=== PATIENT | female | born 1940 | race Caucasian/White ===

== ENCOUNTER 2018-03-07 17:45 | Emergency (ER) | payer OTHER, BC ==
--- NOTE | 2018-03-07 19:21 | RAD REPORT ---
EXAM DESCRIPTION: Jr Phelan (2 Views)03/07/2018 6:49 pm CLINICAL HISTORY: sob COMPARISON: April 2016 FINDINGS: The lungs appear clear of acute infiltrate. The heart is normal size IMPRESSION: No acute abnormalities displayed
[2018-03-07] MEDS ORDERED: IPRATROPIUM BROM 0.5MG/2.5ML ONE (20:13)
[2018-03-07] MEDS ORDERED: ALBUTEROL 2.5 MG/3 ML NEB SOL ONE (20:13)
[2018-03-07] MEDS ORDERED: predniSONE 20 MG TAB ONE (20:13)
[2018-03-07 20:38] LABS: Absolute Lymphocytes (CBC) 3.9 K/uL (0.7-4.9); Absolute Monocytes 0.6 K/uL (0.1-1.3); Basophils % 1.2 % (0-1.3); Eosinophils % 1.1 % (0-4.4); Hematocrit 45.7 % (36.0-45.0); MCH 32.2 pg (27.0-35.0); MCV 92.8 fL (80-100); MPV 7.7 fL (7.6-11.3); Monocytes % 5.7 % (3.3-12.3); RBC Red Blood Cell Count 4.92 M/uL (3.86-4.86)
[2018-03-07 20:56] LABS: BUN Blood Urea Nitrogen 15 mg/dL (7-18); Bicarbonate 27 mmol/L (21-32); Glucose Level 115 mg/dL (74-106); NT PRO-BNP 64 pg/mL (<450); Potassium 3.9 mmol/L (3.5-5.1); Sodium Level 138 mmol/L (136-145); Troponin (Emerg Dept Use Only) < 0.02 ng/mL (0.0-0.045)
--- NOTE | 2018-03-07 21:01 | ER ---
Nurse's Notes [facility] Name: Nanci Thomas Age: 77 yrs Sex: Female : 1940 Arrival Date: 03/07/2018 Time: 17:49 Bed 23 Private MD: Barry Sandy E Diagnosis: Acute bronchitis Presentation: 03/07 18:07 Presenting complaint: Patient states: SOB for 4 days. Unable to see dental financial coordinator aj today. Transition of care: patient was not received from another setting of care. Onset of symptoms was March 03, 2018. Risk Assessment: Do you want to hurt yourself or someone else? Patient reports no desire to harm self or others. Initial Sepsis Screen: Does the patient meet any 2 criteria? No. Patient's initial sepsis screen is negative. Does the patient have a suspected source of infection? No. Patient's initial sepsis screen is negative. Care prior to arrival: None. 18:07 Method Of Arrival: Ambulatory aj 18:07 Acuity: JOEL 3 aj Triage Assessment: 18:10 General: Appears in no apparent distress. comfortable, Behavior is calm, cooperative, aj appropriate for age. Pain: Denies pain. Neuro: Level of Consciousness is awake, alert, obeys commands, Oriented to person, place, time, situation, Appropriate for age. Respiratory: Reports shortness of breath Airway is patent Respiratory effort is even, unlabored, Respiratory pattern is regular, symmetrical, Onset: The symptoms/episode began/occurred gradually, the patient has mild shortness of breath. Derm: Skin is intact, is healthy with good turgor, Skin is pink, warm \T\ dry. normal. Historical: - Allergies: 18:10 adhesive tape-silicones; aj 18:10 Cefaclor; aj 18:10 Codeine; aj 18:10 Hydrocodone-Acetaminophen; aj 18:10 Latex, Natural Rubber; aj 18:10 Levofloxacin; aj 18:10 Sulfa (Sulfonamide Antibiotics); aj - Home Meds: 20:18 spironolactone 50 mg Oral tab 1 tab once daily [Active]; Cartia XT 180 mg Oral cp24 2 ed1 caps once daily [Active]; Spiriva with HandiHaler 18 mcg inhalation CpDv 1 cap once daily [Active]; glimepiride 2 mg Oral tab 1 tab once daily [Active]; anastrozole 1 mg oral tab 1 tab once daily [Active]; Calcarb 600 With Vitamin D 600 mg(1,500mg) -400 unit Oral tab [Active]; B12 sublingual sublingual daily [Active]; Zonalon 5 % topical crea PRN [Active]; Melatonin Oral nightly [Active]; - PMHx: 18:10 breast cancer; COPD; Hypertension; aj - PSHx: 18:10 left breast cancer; Mastectomy, Left; aj - Immunization history:: Adult Immunizations up to date. - Social history:: Smoking status: Patient/guardian denies using tobacco. - Ebola Screening: : Patient negative for fever greater than or equal to 101.5 degrees Fahrenheit, and additional compatible Ebola Virus Disease symptoms Patient denies exposure to infectious person Patient denies travel to an Ebola-affected area in the 21 days before illness onset No symptoms or risks identified at this time. Screenin:30 Abuse screen: Denies threats or abuse. Denies injuries from another. Nutritional ed1 screening: No deficits noted. Tuberculosis screening: No symptoms or risk factors identified. Fall Risk None identified. Assessment: 19:30 General: Appears in no apparent distress. Behavior is calm, cooperative. Pain: Denies ed1 pain. Neuro: Level of Consciousness is awake, alert, obeys commands, Oriented to person, place, time, situation. Cardiovascular: Denies chest pain, Heart tones S1 S2 present Rhythm is regular. Respiratory: Reports shortness of breath at rest Airway is patent Respiratory effort is even, unlabored, Respiratory pattern is regular, symmetrical, Breath sounds are coarse bilaterally. GI: No signs and/or symptoms were reported involving the gastrointestinal system. : No signs and/or symptoms were reported regarding the genitourinary system. EENT: No signs and/or symptoms were reported regarding the EENT system. Derm: Skin is intact, is healthy with good turgor, Skin is dry, Skin is normal, Skin temperature is warm. Musculoskeletal: Circulation, motion, and sensation intact. 20:58 Reassessment: Patient appears in no apparent distress at this time. Patient and/or ed1 family updated on plan of care and expected duration. Pain level reassessed. Patient is alert, oriented x 3, equal unlabored respirations, skin warm/dry/pink. Patient denies pain at this time. Patient states feeling better. Patient states symptoms have improved. Vital Signs: 18:10 BP 146 / 73; Pulse 95; Resp 21; Temp 98.6; Pulse Ox 97% on R/A; Weight 83.91 kg; Height aj 5 ft. 4 in. (162.56 cm); 19:30 BP 174 / 76; Pulse 94; Resp 19; Pulse Ox 98% on R/A; Pain 0/10; ed1 20:58 BP 155 / 73; Pulse 93; Resp 15; Pulse Ox 96% on R/A; Pain 0/10; ed1 18:10 Body Mass Index 31.75 (83.91 kg, 162.56 cm) ED Course: 17:49 Patient arrived in ED. mr 17:50 Barry Sandy MD is Private Physician. mr 18:09 Triage completed. aj 18:10 Arm band placed on right wrist. Patient placed in waiting room, Patient notified of wait time. X-ray ordered. 18:48 Chest Pa And Lat (2 Views) XRAY In Process Unspecified. EDMS 19:25 Yessi Ward LVN is Primary Nurse. ed1 19:30 Resting quietly. Awaiting ED provider evaluation. ed1 19:30 Patient has correct armband on for positive identification. Placed in gown. Bed in low ed1 position. Call light in reach. Side rails up X 1. Adult w/ patient. Pulse ox on. NIBP on. Door closed. Warm blanket given. Pillow given. Head of bed elevated. 19:32 Taj Freed MD is Attending Physician. 21:10 No provider procedures requiring assistance completed. IV discontinued, intact, ed1 bleeding controlled, No redness/swelling at site. Pressure dressing applied. Administered Medications: 20:10 Drug: Albuterol 2.5 mg Route: Inhalation; ed1 21:12 Follow up: Response: Marked relief of symptoms ed1 20:10 Drug: AtroVENT Aerosol 0.5 mg Route: Inhalation; ed1 21:11 Follow up: Response: Marked relief of symptoms ed1 20:11 Drug: predniSONE 20 mg Route: PO; ed1 21:11 Follow up: Response: No adverse reaction ed1 Outcome: 21:00 Discharge ordered by . gs 21:10 Discharged to home ambulatory. ed1 21:10 Condition: good 21:10 Discharge instructions given to patient, Instructed on discharge instructions, follow up and referral plans. medication usage, Demonstrated understanding of instructions, follow-up care, medications, Prescriptions given X 2. 21:12 Patient left the ED. ed1 Signatures: Dispatcher [employer] EDMS Penny Bellamy RN RN aj Rivera, Meryl mr Ward, Yessi, INSTALLER METAL FLOORING INSTALLER METAL FLOORING ed1 Taj Freed MD MD gs Corrections: (The following items were deleted from the chart) 20:18 18:10 Home Meds: cetirizine Oral; ed1 20:18 18:10 Home Meds: cholecalciferol (vitamin D3) Oral; ed1 20:18 18:10 Home Meds: Diltiazem Oral; ed1 20:18 18:10 Home Meds: Doxepin Oral; ed1 20:18 18:10 Home Meds: Famotidine Oral; ed1 20:18 18:10 Home Meds: montelukast Oral; ed1 20:18 18:10 Home Meds: Spironolacton-Hydrochlorothiaz Oral; ed1 20:18 18:10 Home Meds: tiotropium bromide inhalation; ed1 20:18 18:10 Home Meds: Azithromycin Oral [Inactive]; ed1
--- NOTE | 2018-03-07 21:01 | EDPHYS ---
Physician Documentation [facility] Name: Nanci Thomas Age: 77 yrs Sex: Female : 1940 Arrival Date: 03/07/2018 Time: 17:49 Bed 23 Private MD: Barry Sandy E ED Physician Taj Freed HPI: 03/07 20:58 This 77 yrs old Female presents to ER via Ambulatory with complaints of gs Breathing Difficulty. 20:58 The patient has shortness of breath at rest. Onset: The symptoms/episode began/occurred gs 1 week(s) ago, and became persistent. Duration: The symptoms are intermittent. The patient's shortness of breath is aggravated by coughing. Associated signs and symptoms: Pertinent positives: non-productive cough, Pertinent negatives: chest pain, fever, hemoptysis. Severity of symptoms: At their worst the symptoms were moderate in the emergency department the symptoms have improved moderately. The patient has experienced similar episodes in the past, a few times. Historical: - Allergies: 18:10 adhesive tape-silicones; aj 18:10 Cefaclor; aj 18:10 Codeine; aj 18:10 Hydrocodone-Acetaminophen; aj 18:10 Latex, Natural Rubber; aj 18:10 Levofloxacin; aj 18:10 Sulfa (Sulfonamide Antibiotics); aj - Home Meds: 20:18 spironolactone 50 mg Oral tab 1 tab once daily [Active]; Cartia XT 180 mg Oral cp24 2 ed1 caps once daily [Active]; Spiriva with HandiHaler 18 mcg inhalation CpDv 1 cap once daily [Active]; glimepiride 2 mg Oral tab 1 tab once daily [Active]; anastrozole 1 mg oral tab 1 tab once daily [Active]; Calcarb 600 With Vitamin D 600 mg(1,500mg) -400 unit Oral tab [Active]; B12 sublingual sublingual daily [Active]; Zonalon 5 % topical crea PRN [Active]; Melatonin Oral nightly [Active]; - PMHx: 18:10 breast cancer; COPD; Hypertension; aj - PSHx: 18:10 left breast cancer; Mastectomy, Left; aj - Immunization history:: Adult Immunizations up to date. - Social history:: Smoking status: Patient/guardian denies using tobacco. - Ebola Screening: : Patient negative for fever greater than or equal to 101.5 degrees Fahrenheit, and additional compatible Ebola Virus Disease symptoms Patient denies exposure to infectious person Patient denies travel to an Ebola-affected area in the 21 days before illness onset No symptoms or risks identified at this time. ROS: 20:58 All other systems are negative. gs Exam: 20:58 Head/Face: Normocephalic, atraumatic. Eyes: Pupils equal round and reactive to light, gs extra-ocular motions intact. Lids and lashes normal. Conjunctiva and sclera are non-icteric and not injected. Cornea within normal limits. Periorbital areas with no swelling, redness, or edema. ENT: Nares patent. No nasal discharge, no septal abnormalities noted. Tympanic membranes are normal and external auditory canals are clear. Oropharynx with no redness, swelling, or masses, exudates, or evidence of obstruction, uvula midline. Mucous membranes moist. Neck: Trachea midline, no thyromegaly or masses palpated, and no cervical lymphadenopathy. Supple, full range of motion without nuchal rigidity, or vertebral point tenderness. No Meningismus. Chest/axilla: Normal chest wall appearance and motion. Nontender with no deformity. No lesions are appreciated. Cardiovascular: Regular rate and rhythm with a normal S1 and S2. No gallops, murmurs, or rubs. Normal PMI, no JVD. No pulse deficits. Respiratory: Lungs have equal breath sounds bilaterally, clear to auscultation and percussion. No rales, rhonchi or wheezes noted. No increased work of breathing, no retractions or nasal flaring. Abdomen/GI: Soft, non-tender, with normal bowel sounds. No distension or tympany. No guarding or rebound. No evidence of tenderness throughout. Back: No spinal tenderness. No costovertebral tenderness. Full range of motion. Skin: Warm, dry with normal turgor. Normal color with no rashes, no lesions, and no evidence of cellulitis. MS/ Extremity: Pulses equal, no cyanosis. Neurovascular intact. Full, normal range of motion. Neuro: Awake and alert, GCS 15, oriented to person, place, time, and situation. Cranial nerves II-XII grossly intact. Motor strength 5/5 in all extremities. Sensory grossly intact. Cerebellar exam normal. Normal gait. 20:58 Constitutional: The patient appears alert, awake. 20:58 ECG was reviewed by the Attending Physician. Vital Signs: 18:10 BP 146 / 73; Pulse 95; Resp 21; Temp 98.6; Pulse Ox 97% on R/A; Weight 83.91 kg; Height aj 5 ft. 4 in. (162.56 cm); 19:30 BP 174 / 76; Pulse 94; Resp 19; Pulse Ox 98% on R/A; Pain 0/10; ed1 20:58 BP 155 / 73; Pulse 93; Resp 15; Pulse Ox 96% on R/A; Pain 0/10; ed1 18:10 Body Mass Index 31.75 (83.91 kg, 162.56 cm) aj MDM: 20:01 Patient medically screened. 20:58 Differential diagnosis: asthma, CHF exacerbation, Chronic Obstructive Pulmonary Disease gs Myocardial Infarction pneumonia. Data reviewed: vital signs, nurses notes, lab test result(s), EKG, radiologic studies. Counseling: I had a detailed discussion with the patient and/or guardian regarding: the historical points, exam findings, and any diagnostic results supporting the discharge/admit diagnosis, lab results, radiology results, the need for outpatient follow up. Response to treatment: the patient's symptoms have markedly improved after treatment, and as a result, I will discharge patient. 03/07 20:03 Order name: Basic Metabolic Panel; Complete Time: 20:57 03/07 20:03 Order name: CBC with Diff; Complete Time: 20:57 03/07 18:12 Order name: Chest Pa And Lat (2 Views) XRAY; Complete Time: 19:32 03/07 20:03 Order name: NT PRO-BNP; Complete Time: 20:57 03/07 20:03 Order name: Troponin (emerg Dept Use Only); Complete Time: 20:57 03/07 20:03 Order name: EKG; Complete Time: 20:04 03/07 20:03 Order name: Cardiac monitoring; Complete Time: 20:19 03/07 20:03 Order name: EKG - Nurse/Tech; Complete Time: 20:19 03/07 20:03 Order name: IV Saline Lock; Complete Time: 20:19 03/07 20:03 Order name: Labs collected and sent; Complete Time: 20:19 03/07 20:03 Order name: O2 Per Protocol; Complete Time: 20:19 gs 03/07 20:03 Order name: O2 Sat Monitoring; Complete Time: 20:19 gs EC:58 Rate is 87 beats/min. Rhythm is regular. MI interval is normal. QRS interval is normal. gs T waves are Normal. No ST changes noted. Clinical impression: Normal ECG. Interpreted by me. Administered Medications: 20:10 Drug: Albuterol 2.5 mg Route: Inhalation; ed1 21:12 Follow up: Response: Marked relief of symptoms ed1 20:10 Drug: AtroVENT Aerosol 0.5 mg Route: Inhalation; ed1 21:11 Follow up: Response: Marked relief of symptoms ed1 20:11 Drug: predniSONE 20 mg Route: PO; ed1 21:11 Follow up: Response: No adverse reaction ed1 Disposition: 03/07/18 21:00 Discharged to Home. Impression: Acute bronchitis. - Condition is Stable. - Discharge Instructions: Acute Bronchitis, Adult. - Prescriptions for Prednisone 20 mg Oral Tablet - take 1 tablet by ORAL route once daily for 5 days; 5 tablet. Albuterol Sulfate 90 mcg/actuation - inhale 1-2 puff by INHALATION route every 4-6 hours; 1 Inhaler. - Medication Reconciliation Form, Thank You Letter, Antibiotic Education, Prescription Opioid Use form. - Follow up: Private Physician; When: 2 - 3 days; Reason: Re-evaluation by your physician. Signatures: Dispatcher [employer] EDMS Penny Bellamy RN RN aj Riggs, Erika, SUPERVISOR METER REPAIR SHOP SUPERVISOR METER REPAIR SHOP ed1 Taj Freed MD MD Corrections: (The following items were deleted from the chart) 20:18 18:10 Home Meds: cetirizine Oral; ed1 20:18 18:10 Home Meds: cholecalciferol (vitamin D3) Oral; ed1 20:18 18:10 Home Meds: Diltiazem Oral; ed1 20:18 18:10 Home Meds: Doxepin Oral; ed1 20:18 18:10 Home Meds: Famotidine Oral; ed1 20:18 18:10 Home Meds: montelukast Oral; ed1 20:18 18:10 Home Meds: Spironolacton-Hydrochlorothiaz Oral; ed1 20:18 18:10 Home Meds: tiotropium bromide inhalation; aj ed1 20:18 18:10 Home Meds: Azithromycin Oral [Inactive]; aj ed1 21:12 21:00 03/07/2018 21:00 Discharged to Home. Impression: Acute bronchitis. Condition is ed1 Stable. Forms are Medication Reconciliation Form, Thank You Letter, Antibiotic Education, Prescription Opioid Use. Follow up: Private Physician; When: 2 - 3 days; Reason: Re-evaluation by your physician. gs
--- NOTE | 2018-03-08 07:19 | EKG ---
Test Date: 2018-03-07 Test Time: 20:12:12 Business Mgr: LIANET MEASUREMENT RESULTS: Intervals: Rate: 87 RI: 178 QRSD: 74 QT: 360 QTc: 433 [place]: P: 74 RI: 178 QRS: 22 T: 70 INTERPRETIVE STATEMENTS: Normal sinus rhythm Normal ECG Compared to ECG 05/04/2016 21:09:07 No significant changes Electronically Signed On 03-08-18 07:18:18 EMBOSSING MACHINE OPERATOR by Cristofer Cheung
== END 2018-03-07 21:12 | disposition home or self-care (01) ==
LOC: ER 17:45
DX: J20.9 Acute bronchitis, unspecified (principal); I10 Essential (primary) hypertension; Z85.3 Personal history of malignant neoplasm of breast; Z88.2 Allergy status to sulfonamides; Z88.5 Allergy status to narcotic agent; Z88.8 Allergy status to other drugs, medicaments and biological substances; Z90.12 Acquired absence of left breast and nipple; Z91.040 Latex allergy status; Z91.048 Other nonmedicinal substance allergy status
CPT/HCPCS: 36415; 71046; 80048; 83880; 84484; 85025; 93005; 99284; J7512

== ENCOUNTER 2019-01-26 03:43 | Emergency (ER) | payer OTHER, BC ==
[2019-01-26] MEDS ORDERED: METHYLPREDNISOLONE 125 MG INJ ONE (04:09)
[2019-01-26] MEDS ORDERED: FAMOTIDINE 20 MG/2 ML VIAL IV ONE (04:10)
[2019-01-26] MEDS ORDERED: NA CHLORIDE 0.9% 1,000 ML ONE (04:10)
[2019-01-26] MEDS ORDERED: DIPHENHYDRAMINE 50 MG/ML VIAL ONE (04:10)
[2019-01-26] MEDS ORDERED: predniSONE 20 MG TAB ONE (04:11)
[2019-01-26 04:18] LABS: Absolute Lymphocytes (CBC) 3.7 K/uL (0.7-4.9); Basophils % 0.8 % (0-1.3); Hematocrit 43.1 % (36.0-45.0); MPV 7.6 fL (7.6-11.3)
[2019-01-26] MEDS ORDERED: dexAMETHasone 10 MG/ML VIAL ONE (04:25)
[2019-01-26 04:33] LABS: Albumin 3.9 g/dL (3.4-5.0); Bilirubin Total 0.3 mg/dL (0.2-1.0); Potassium 3.9 mmol/L (3.5-5.1); Protein, Total 7.5 g/dL (6.4-8.2)
--- NOTE | 2019-01-26 04:38 | ER ---
Nurse's Notes [facility] Name: Nanci Thomas Age: 78 yrs Sex: Female : 1940 Arrival Date: 01/26/2019 Time: 03:46 Bed 4 Private MD: Diagnosis: Angioneurotic edema Presentation: 01/26 04:03 Presenting complaint: Patient states: progressive swelling in right side of tongue tl2 since last night, denies difficulty swallowing or breathing. Reports history of chronic urticaria and has had tongue swelling in the past. Pt took 3 doses of benadryl since 0000, last dose at 0300. Transition of care: patient was not received from another setting of care. Onset of symptoms was January 25, 2019 at 22:00. Risk Assessment: Do you want to hurt yourself or someone else? Patient reports no desire to harm self or others. Initial Sepsis Screen: Does the patient meet any 2 criteria? No. Patient's initial sepsis screen is negative. Does the patient have a suspected source of infection? No. Patient's initial sepsis screen is negative. Care prior to arrival: Medication(s) given: benadryl. 04:03 Method Of Arrival: Ambulatory tl2 04:03 Acuity: JOEL 3 tl2 Triage Assessment: 04:09 General: Appears in no apparent distress. comfortable, Behavior is calm, cooperative, tl2 appropriate for age. Pain: Denies pain. Neuro: Level of Consciousness is awake, alert, obeys commands, Oriented to person, place, time, situation. Cardiovascular: Denies chest pain. Respiratory: Airway is patent Respiratory effort is even, unlabored, Respiratory pattern is regular, symmetrical. Derm: Skin is pink, warm \T\ dry. Musculoskeletal: Swelling present in right side of tongue. Historical: - Allergies: 04:07 adhesive tape-silicones; tl2 04:07 Cefaclor; tl2 04:07 Codeine; tl2 04:07 Hydrocodone-Acetaminophen; tl2 04:07 Latex, Natural Rubber; tl2 04:07 Levofloxacin; tl2 04:07 Sulfa (Sulfonamide Antibiotics); tl2 - Home Meds: 04:07 anastrozole 1 mg Oral tab 1 tab once daily [Active]; B12 sublingual daily [Active]; tl2 glimepiride 2 mg Oral tab 1 tab once daily [Active]; Calcarb 600 With Vitamin D 600 mg(1,500mg) -400 unit Oral tab [Active]; spironolactone 50 mg Oral tab 1 tab once daily [Active]; Zonalon 5 % Topical crea PRN [Active]; Diltiazem Oral [Active]; - PMHx: 04:07 breast cancer; COPD; Hypertension; tl2 - PSHx: 04:07 Mastectomy, Left; tl2 - Immunization history:: Adult Immunizations up to date. - Social history:: Smoking status: Patient/guardian denies using tobacco. - Family history:: not pertinent. - Ebola Screening: : No symptoms or risks identified at this time. Screenin:11 Abuse screen: Denies threats or abuse. Nutritional screening: No deficits noted. tl2 Tuberculosis screening: No symptoms or risk factors identified. Fall Risk None identified. Assessment: 04:10 Reassessment: see triage assessment. tl2 05:25 Reassessment: Patient appears in no apparent distress at this time. Patient and/or tl2 family updated on plan of care and expected duration. Pain level reassessed. Patient is alert, oriented x 3, equal unlabored respirations, skin warm/dry/pink. Patient states feeling better. Vital Signs: 04:09 BP 147 / 108; Pulse 103; Resp 18; Temp 98.2(O); Pulse Ox 97% on R/A; Weight 81.65 kg; tl2 Height 5 ft. 3 in. (160.02 cm); Pain 0/10; 05:25 BP 150 / 62; Pulse 87; Resp 16; Temp 98.2; Pulse Ox 97% ; Pain 0/10; tl1 04:09 Body Mass Index 31.89 (81.65 kg, 160.02 cm) tl2 ED Course: 03:46 Patient arrived in ED. cl3 03:46 Anival Avila MD is Attending Physician. nico 04:03 Rosalia Alvarado RN is Primary Nurse. tl2 04:05 Triage completed. tl2 04:09 Arm band placed on right wrist. tl2 04:11 Patient has correct armband on for positive identification. Bed in low position. Call tl2 light in reach. Side rails up X 1. 04:13 Inserted saline lock: 22 gauge in right hand, using aseptic technique. Blood collected. tl2 placed by APRYL Oliveira. 05:22 No provider procedures requiring assistance completed. IV discontinued, intact, tl1 bleeding controlled, No redness/swelling at site. Pressure dressing applied. Administered Medications: 04:23 Drug: NS 0.9% 1000 ml Route: IV; Rate: 1 bolus; Site: right hand; tl1 05:23 Follow up: IV Status: Completed infusion; IV Intake: 1000ml tl1 04:23 Drug: Benadryl 25 mg Route: IVP; Infused Over: 2 mins; Site: right hand; tl1 05:23 Follow up: Response: No adverse reaction; Marked relief of symptoms tl1 04:23 Drug: SOLU-Medrol 125 mg Route: IVP; Infused Over: 2 mins; Site: right hand; tl1 05:23 Follow up: Response: No adverse reaction; Marked relief of symptoms tl1 04:24 Drug: predniSONE 60 mg Route: PO; tl1 05:24 Follow up: Response: No adverse reaction; Marked relief of symptoms tl1 04:24 Drug: Pepcid 40 mg Route: IVP; Infused Over: 2 mins; Site: right hand; tl1 05:24 Follow up: Response: No adverse reaction; Marked relief of symptoms tl1 04:24 Drug: Decadron - Dexamethasone 10 mg Route: IVP; Infused Over: 2 mins; Site: right hand;tl1 05:22 Follow up: Response: No adverse reaction; Marked relief of symptoms tl1 Intake: 05:23 IV: 1000ml; Total: 1000ml. tl1 Outcome: 04:36 Discharge ordered by MD. walsh 05:24 Discharged to home ambulatory. tl1 05:24 Condition: good 05:24 Discharge instructions given to patient, Instructed on discharge instructions, follow up and referral plans. medication usage, Demonstrated understanding of instructions, follow-up care, medications, Prescriptions given X 3. 05:26 Patient left the ED. tl1 Signatures: Anival Avila MD MD cha Lasagna, Tonya, RN RN tl1 Rosalia lAvarado RN RN tl2 Otf Ramirez cl3
--- NOTE | 2019-01-26 04:39 | EDPHYS ---
Physician Documentation [facility] Name: Nanci Thomas Age: 78 yrs Sex: Female : 1940 Arrival Date: 01/26/2019 Time: 03:46 Bed 4 Private MD: INGE Physician Anival Avila HPI: 01/26 04:02 This 78 yrs old Female presents to ER via Unassigned with complaints of nico Swelling Of Tongue. 04:02 The patient presents with pain, swelling. The problem is located in the mouth. Onset: nico The symptoms/episode began/occurred just prior to arrival, this morning. Duration: The symptoms are continuous, and are steadily getting worse. Modifying factors: The symptoms are alleviated by nothing, the symptoms are aggravated by nothing. Associated signs and symptoms: The patient has no apparent associated signs or symptoms. Severity of symptoms: At their worst the symptoms were mild, in the emergency department the symptoms are unchanged. The patient has not experienced similar symptoms in the past. Historical: - Allergies: 04:07 adhesive tape-silicones; tl2 04:07 Cefaclor; tl2 04:07 Codeine; tl2 04:07 Hydrocodone-Acetaminophen; tl2 04:07 Latex, Natural Rubber; tl2 04:07 Levofloxacin; tl2 04:07 Sulfa (Sulfonamide Antibiotics); tl2 - Home Meds: 04:07 anastrozole 1 mg Oral tab 1 tab once daily [Active]; B12 sublingual daily [Active]; tl2 glimepiride 2 mg Oral tab 1 tab once daily [Active]; Calcarb 600 With Vitamin D 600 mg(1,500mg) -400 unit Oral tab [Active]; spironolactone 50 mg Oral tab 1 tab once daily [Active]; Zonalon 5 % Topical crea PRN [Active]; Diltiazem Oral [Active]; - PMHx: 04:07 breast cancer; COPD; Hypertension; tl2 - PSHx: 04:07 Mastectomy, Left; tl2 - Immunization history:: Adult Immunizations up to date. - Social history:: Smoking status: Patient/guardian denies using tobacco. - Family history:: not pertinent. - Ebola Screening: : No symptoms or risks identified at this time. ROS: 04:02 Constitutional: Negative for fever, chills, and weight loss, Eyes: Negative for injury, nico pain, redness, and discharge, Neck: Negative for injury, pain, and swelling, Cardiovascular: Negative for chest pain, palpitations, and edema, Respiratory: Negative for shortness of breath, cough, wheezing, and pleuritic chest pain, Abdomen/GI: Negative for abdominal pain, nausea, vomiting, diarrhea, and constipation, Back: Negative for injury and pain, : Negative for injury, bleeding, discharge, and swelling, MS/Extremity: Negative for injury and deformity, Skin: Negative for injury, rash, and discoloration, Neuro: Negative for headache, weakness, numbness, tingling, and seizure, Psych: Negative for depression, anxiety, suicide ideation, homicidal ideation, and hallucinations, Allergy/Immunology: Negative for hives, rash, and allergies, Endocrine: Negative for neck swelling, polydipsia, polyuria, polyphagia, and marked weight changes, Hematologic/Lymphatic: Negative for swollen nodes, abnormal bleeding, and unusual bruising. 04:02 ENT: Positive for Exam: 04:02 Constitutional: This is a well developed, well nourished patient who is awake, alert, nico and in no acute distress. Head/Face: Normocephalic, atraumatic. Eyes: Pupils equal round and reactive to light, extra-ocular motions intact. Lids and lashes normal. Conjunctiva and sclera are non-icteric and not injected. Cornea within normal limits. Periorbital areas with no swelling, redness, or edema. Neck: Trachea midline, no thyromegaly or masses palpated, and no cervical lymphadenopathy. Supple, full range of motion without nuchal rigidity, or vertebral point tenderness. No Meningismus. Chest/axilla: Normal chest wall appearance and motion. Nontender with no deformity. No lesions are appreciated. Cardiovascular: Regular rate and rhythm with a normal S1 and S2. No gallops, murmurs, or rubs. Normal PMI, no JVD. No pulse deficits. Respiratory: Lungs have equal breath sounds bilaterally, clear to auscultation and percussion. No rales, rhonchi or wheezes noted. No increased work of breathing, no retractions or nasal flaring. Abdomen/GI: Soft, non-tender, with normal bowel sounds. No distension or tympany. No guarding or rebound. No evidence of tenderness throughout. Back: No spinal tenderness. No costovertebral tenderness. Full range of motion. Skin: Warm, dry with normal turgor. Normal color with no rashes, no lesions, and no evidence of cellulitis. MS/ Extremity: Pulses equal, no cyanosis. Neurovascular intact. Full, normal range of motion. Neuro: Awake and alert, GCS 15, oriented to person, place, time, and situation. Cranial nerves II-XII grossly intact. Motor strength 5/5 in all extremities. Sensory grossly intact. Cerebellar exam normal. Normal gait. Psych: Awake, alert, with orientation to person, place and time. Behavior, mood, and affect are within normal limits. 04:02 ENT: Mouth: Oral mucosa: normal, pink and intact, moist, Gums: normal with healthy appearance, Tongue: is elevated, is moist, is swollen, abscess, is not appreciated, drooling, is not appreciated. Vital Signs: 04:09 BP 147 / 108; Pulse 103; Resp 18; Temp 98.2(O); Pulse Ox 97% on R/A; Weight 81.65 kg; tl2 Height 5 ft. 3 in. (160.02 cm); Pain 0/10; 05:25 BP 150 / 62; Pulse 87; Resp 16; Temp 98.2; Pulse Ox 97% ; Pain 0/10; tl1 04:09 Body Mass Index 31.89 (81.65 kg, 160.02 cm) tl2 MDM: 03:59 Patient medically screened. [facility] 04:02 Data reviewed: vital signs, nurses notes, lab test result(s). [facility] 01/26 04:01 Order name: CBC with Diff; Complete Time: 04:[address] [facility] 01/26 04:01 Order name: Comprehensive Metabolic Panel [facility] Administered Medications: 04:23 Drug: NS 0.9% 1000 ml Route: IV; Rate: 1 bolus; Site: right hand; tl1 05:23 Follow up: IV Status: Completed infusion; IV Intake: 1000ml tl1 04:23 Drug: Benadryl 25 mg Route: IVP; Infused Over: 2 mins; Site: right hand; tl1 05:23 Follow up: Response: No adverse reaction; Marked relief of symptoms 1 04:23 Drug: SOLU-Medrol 125 mg Route: IVP; Infused Over: 2 mins; Site: right hand; tl1 05:23 Follow up: Response: No adverse reaction; Marked relief of symptoms tl1 04:24 Drug: predniSONE 60 mg Route: PO; tl1 05:24 Follow up: Response: No adverse reaction; Marked relief of symptoms tl1 04:24 Drug: Pepcid 40 mg Route: IVP; Infused Over: 2 mins; Site: right hand; tl1 05:24 Follow up: Response: No adverse reaction; Marked relief of symptoms tl1 04:24 Drug: Decadron - Dexamethasone 10 mg Route: IVP; Infused Over: 2 mins; Site: right hand;tl1 05:22 Follow up: Response: No adverse reaction; Marked relief of symptoms tl1 Disposition: 01/26/19 04:36 Discharged to Home. Impression: Angioneurotic edema. - Condition is Stable. - Discharge Instructions: Allergies, Adult, Angioedema, Angioedema, [id number]. - Prescriptions for Benadryl 25 mg Oral Capsule - take 1 capsule by ORAL route every 6 hours As needed; 30 tablet. Pepcid 20 mg Oral Tablet - take 1 tablet by ORAL route every 12 hours for 10 days; 20 tablet. Prednisone 20 mg Oral Tablet - take 2 tablet by ORAL route once daily for 5 days; 10 tablet. EpiPen 0.3 mg Injection auto- injector - inject 1 pen by INTRAMUSCULAR route one time Inject into the outer portion of the thigh, through clothing if necessary. Indicated in the emergency treatment of allergic reactions; 1 Container. - Medication Reconciliation Form, Thank You Letter, Antibiotic Education, Prescription Opioid Use form. - Follow up: Private Physician; When: 2 - 3 days; Reason: Recheck today's complaints, Continuance of care, Re-evaluation by your physician. - Problem is new. - Symptoms have improved. Signatures: Dispatcher [employer] EDIN Anival Avila MD MD cha Lasagna, Tonya RN RN tl1 Rosalia Alvarado RN RN tl2 Corrections: (The following items were deleted from the chart) 05:26 04:36 01/26/2019 04:36 Discharged to Home. Impression: Angioneurotic edema. Condition tl1 is Stable. Discharge Instructions: Allergies, Adult, Angioedema, Angioedema, [id number]. Prescriptions for Benadryl 25 mg Oral Capsule - take 1 capsule by ORAL route every 6 hours As needed; 30 tablet, Pepcid 20 mg Oral Tablet - take 1 tablet by ORAL route every 12 hours for 10 days; 20 tablet, Prednisone 20 mg Oral Tablet - take 2 tablet by ORAL route once daily for 5 days; 10 tablet, EpiPen 0.3 mg Injection auto-injector - inject 1 pen by INTRAMUSCULAR route one time Inject into the outer portion of the thigh, through clothing if necessary. Indicated in the emergency treatment of allergic reactions; 1 Container. and Forms are Medication Reconciliation Form, Thank You Letter, Antibiotic Education, Prescription Opioid Use. Follow up: Private Physician; When: 2 - 3 days; Reason: Recheck today's complaints, Continuance of care, Re-evaluation by your physician. Problem is new. Symptoms have improved. nico
[2019-01-26 05:35] VITALS: TEMP 98.2; O2SAT 97
[2019-01-26 05:36] VITALS: BP 150/62
== END 2019-01-26 05:26 | disposition home or self-care (01) ==
LOC: ER 03:43
DX: T78.3XXA Angioneurotic edema, initial encounter (principal); I10 Essential (primary) hypertension; J44.9 Chronic obstructive pulmonary disease, unspecified; Z88.5 Allergy status to narcotic agent; Z88.2 Allergy status to sulfonamides; Z88.3 Allergy status to other anti-infective agents; Z85.3 Personal history of malignant neoplasm of breast; Z90.12 Acquired absence of left breast and nipple; Z91.040 Latex allergy status
CPT/HCPCS: 96361; 85025; 36415; 80053; 96375; 96374; 99284; J1200; J1100; J7030; J2930; J7512

== ENCOUNTER 2019-02-09 09:43 | Emergency (ER) | payer OTHER, BC ==
--- NOTE | 2019-02-09 11:04 | ER ---
Nurse's Notes [facility] Name: Nanci Thomas Age: 78 yrs Sex: Female : 1940 Arrival Date: 02/09/2019 Time: 09:45 Bed 18 Private MD: Diagnosis: Displaced fracture of neck of fifth metacarpal bone, left hand Presentation: 02/09 09:46 Presenting complaint: Patient states: I tripped last night and jammed my left hand on la1 the floor, pain and swelling since then. Transition of care: patient was not received from another setting of care. Onset of symptoms was February 09, 2019. Risk Assessment: Do you want to hurt yourself or someone else? Patient reports no desire to harm self or others. Initial Sepsis Screen: Does the patient meet any 2 criteria? No. Patient's initial sepsis screen is negative. Does the patient have a suspected source of infection? No. Patient's initial sepsis screen is negative. Care prior to arrival: None. 09:46 Method Of Arrival: Ambulatory la1 09:46 Acuity: JOEL 4 la1 Historical: - Allergies: 09:46 adhesive tape-silicones; la1 09:46 Cefaclor; la1 09:46 Codeine; la1 09:46 Hydrocodone-Acetaminophen; la1 09:46 Latex, Natural Rubber; la1 09:46 Levofloxacin; la1 09:46 Sulfa (Sulfonamide Antibiotics); la1 - PMHx: 09:46 breast cancer; COPD; Hypertension; la1 - Immunization history:: Adult Immunizations up to date. - Social history:: Smoking status: unknown. - Ebola Screening: : No symptoms or risks identified at this time. Screenin:48 Abuse screen: Denies threats or abuse. Nutritional screening: No deficits noted. em Tuberculosis screening: No symptoms or risk factors identified. Fall Risk None identified. Assessment: 10:04 General: Appears in no apparent distress. comfortable, Behavior is calm, cooperative. em Pain: Complains of pain in dorsum of left hand Pain currently is 6 out of 10 on a pain scale. Neuro: Level of Consciousness is awake, alert, obeys commands, Oriented to person, place, time, situation, Appropriate for age. Cardiovascular: Capillary refill < 3 seconds Patient's skin is warm and dry. Respiratory: Airway is patent Respiratory effort is even, unlabored, Respiratory pattern is regular, symmetrical. Derm: Skin is intact, is healthy with good turgor, Skin is pink, warm \T\ dry. Musculoskeletal: Circulation, motion, and sensation intact. Capillary refill < 3 seconds, Range of motion: limited in left wrist Swelling present in left hand. 11:31 Reassessment: Patient appears in no apparent distress at this time. Patient and/or em family updated on plan of care and expected duration. Pain level reassessed. Patient is alert, oriented x 3, equal unlabored respirations, skin warm/dry/pink. Vital Signs: 09:47 BP 149 / 62; Pulse 95; Resp 16; Temp 98.7; Pulse Ox 100% on R/A; Weight 83.46 kg; la1 Height 5 ft. 4 in. (162.56 cm); 10:42 BP 141 / 69; Pulse 79; Resp 17; Temp 98.1(O); Pulse Ox 95% on R/A; mh5 09:47 Body Mass Index 31.58 (83.46 kg, 162.56 cm) la1 ED Course: 09:45 Patient arrived in ED. as 09:46 Alexander Smith NP is PHCP. pm1 09:46 Charles Gutierrez MD is Attending Physician. pm1 09:46 Arm band placed on right wrist. la1 09:47 Triage completed. la1 09:48 Jayme Hwang LVN is Primary Nurse. em 10:09 Patient has correct armband on for positive identification. Bed in low position. Call em light in reach. 10:23 Hand Left 3 View XRAY In Process Unspecified. EDMS 11:27 Orthoglass splint: Ulnar gutter/Boxer splint applied on left forearm. mh5 11:31 No provider procedures requiring assistance completed. Patient did not have IV access em during this emergency room visit. Administered Medications: No medications were administered Outcome: 11:04 Discharge ordered by . pm1 11:31 Discharged to home ambulatory. em 11:31 Condition: good 11:31 Discharge instructions given to patient, Instructed on discharge instructions, follow up and referral plans. Demonstrated understanding of instructions, follow-up care. 11:39 Patient left the ED. em Signatures: Dispatcher [employer] EDVT Jayme Hwang LVN LVN Laura Gong Lee, RN RN la1 Alexander Smith NP ENGINEERING AIDE 1 Alicia Mccoy [facility] Corrections: (The following items were deleted from the chart) 09:49 09:47 BP 114 / 80; Pulse 95bpm; Resp 16bpm; Pulse Ox 100% RA; Temp 98.7F; 83.46 kg; la1 Height 5 ft. 4 in.; BMI: 31.5; la1
--- NOTE | 2019-02-09 11:04 | EDPHYS ---
Physician Documentation [facility] Name: Nanci Thomas Age: 78 yrs Sex: Female : 1940 Arrival Date: 02/09/2019 Time: 09:45 Bed 18 Private MD: ED Physician Charles Gutierrez HPI: 02/09 09:59 This 78 yrs old Female presents to ER via Ambulatory with complaints of Left pm1 hand injury. 10:01 The patient or guardian reports pain, swelling. The complaints affect the medial aspect pm1 of dorsum of left hand. Context: The problem was sustained at home, resulted from a fall. Onset: The symptoms/episode began/occurred last night. Modifying factors: The symptoms are alleviated by OTC meds, acetaminophen. Associated signs and symptoms: Pertinent negatives: cyanosis distally, decreased sensation distally, numbness distally, tingling distally. Severity of symptoms: in the emergency department the symptoms are unchanged. The patient has not experienced similar symptoms in the past. Patient was walking in the dark in her house and tripped on a planter. Patient fell with her left hand forward and essentially punched the ground with her left hand. No headache, head injury, neck pain, LOC. Historical: - Allergies: 09:46 adhesive tape-silicones; la1 09:46 Cefaclor; la1 09:46 Codeine; la1 09:46 Hydrocodone-Acetaminophen; la1 09:46 Latex, Natural Rubber; la1 09:46 Levofloxacin; la1 09:46 Sulfa (Sulfonamide Antibiotics); la1 - PMHx: 09:46 breast cancer; COPD; Hypertension; la1 - Immunization history:: Adult Immunizations up to date. - Social history:: Smoking status: unknown. - Ebola Screening: : No symptoms or risks identified at this time. ROS: 10:01 Constitutional: Negative for fever, chills, and weight loss, Neck: Negative for injury, pm1 pain, and swelling, Cardiovascular: Negative for chest pain, palpitations, and edema, Respiratory: Negative for shortness of breath, cough, wheezing, and pleuritic chest pain, Back: Negative for injury and pain. 10:01 Skin: Negative for injury, rash, and discoloration. 10:01 Neuro: Negative for headache, weakness, numbness, tingling, and seizure. 10:01 MS/extremity: Positive for pain, swelling, of the dorsum of left hand, Negative for decreased range of motion, deformity. Exam: 10:01 Constitutional: This is a well developed, well nourished patient who is awake, alert, pm1 and in no acute distress. Head/Face: Normocephalic, atraumatic. Neck: Trachea midline, no thyromegaly or masses palpated, and no cervical lymphadenopathy. Supple, full range of motion without nuchal rigidity, or vertebral point tenderness. No Meningismus. Chest/axilla: Normal chest wall appearance and motion. Nontender with no deformity. No lesions are appreciated. Cardiovascular: Regular rate and rhythm with a normal S1 and S2. No gallops, murmurs, or rubs. Normal PMI, no JVD. No pulse deficits. Respiratory: Lungs have equal breath sounds bilaterally, clear to auscultation and percussion. No rales, rhonchi or wheezes noted. No increased work of breathing, no retractions or nasal flaring. Back: No spinal tenderness. No costovertebral tenderness. Full range of motion. Skin: Warm, dry with normal turgor. Normal color with no rashes, no lesions, and no evidence of cellulitis. 10:01 Musculoskeletal/extremity: Extremities: grossly normal except: noted in the dorsum of left hand, distal aspect of 5th metacarpal: ROM: intact in all extremities, Circulation is intact in all extremities. 10:01 Neuro: Orientation: is normal, Motor: is normal, moves all fours. Vital Signs: 09:47 BP 149 / 62; Pulse 95; Resp 16; Temp 98.7; Pulse Ox 100% on R/A; Weight 83.46 kg; la1 Height 5 ft. 4 in. (162.56 cm); 10:42 BP 141 / 69; Pulse 79; Resp 17; Temp 98.1(O); Pulse Ox 95% on R/A; mh5 09:47 Body Mass Index 31.58 (83.46 kg, 162.56 cm) la1 Procedures: 11:04 Splinting: Splint applied to left hand using Orthoglass splint, applied by tech. pm1 Examined by me, post splint application: neurovascular intact, 2+ distal pulses palpable, brisk capillary refill noted, Patient tolerated well. MDM: 09:46 Patient medically screened. pm1 11:01 Data reviewed: vital signs. Data interpreted: Pulse oximetry: on room air is 95 %. pm1 Interpretation: normal. Counseling: I had a detailed discussion with the patient and/or guardian regarding: the historical points, exam findings, and any diagnostic results supporting the discharge/admit diagnosis, radiology results, the need for outpatient follow up, for definitive care, a hand specialist, to return to the emergency department if symptoms worsen or persist or if there are any questions or concerns that arise at home. 02/09 09:59 Order name: Hand Left 3 View XRAY pm1 02/09 11:01 Order name: Ulnar Gutter splint; Complete Time: 11:28 pm1 Administered Medications: No medications were administered Disposition: 11:50 Co-signature as Attending Physician, Charles Gutierrez MD. rn Disposition: 02/09/19 11:04 Discharged to Home. Impression: Displaced fracture of neck of fifth metacarpal bone, left hand. - Condition is Stable. - Discharge Instructions: Boxer's Fracture, Cast or Splint Care, Adult, Metacarpal Fracture. - Medication Reconciliation Form, Thank You Letter, Antibiotic Education, Prescription Opioid Use form. - Follow up: Emergency Department; When: As needed; Reason: Worsening of condition. Follow up: Private Physician; When: 2 - 3 days; Reason: Recheck today's complaints, Continuance of care, Re-evaluation by your physician. - Problem is new. - Symptoms have improved. Signatures: Dispatcher [employer] EDPA Jayme Hwang, OPTICAL LATHE OPERATOR OPTICAL LATHE OPERATOR Charles Addison MD MD rn Attema, Lee, RN RN laAlexander Mcgee NP CARVING MACHINE OPERATOR pm1 Corrections: (The following items were deleted from the chart) 11:39 11:04 02/09/2019 11:04 Discharged to Home. Impression: Displaced fracture of neck of em fifth metacarpal bone, left hand. Condition is Stable. Forms are Medication Reconciliation Form, Thank You Letter, Antibiotic Education, Prescription Opioid Use. Follow up: Emergency Department; When: As needed; Reason: Worsening of condition. Follow up: Private Physician; When: 2 - 3 days; Reason: Recheck today's complaints, Continuance of care, Re-evaluation by your physician. Problem is new. Symptoms have improved. pm1
[2019-02-09 12:21] VITALS: BP 141/69; TEMP 98.1; O2SAT 95
--- NOTE | 2019-02-09 12:54 | RAD REPORT ---
EXAM DESCRIPTION: RAD - Hand Left 3 View - 02/09/2019 10:20 am CLINICAL HISTORY: PAIN COMPARISON: No comparisons FINDINGS: Diffuse osteopenia is seen. Mildly displaced fracture fifth metacarpal neck.
== END 2019-02-09 11:39 | disposition home or self-care (01) ==
LOC: ER 09:43
PROC: 2W3DX1Z Immobilization of Left Lower Arm using Splint (ICD-10-PCS; principal; 2019-02-09)
DX: S62.337A Displaced fracture of neck of fifth metacarpal bone, left hand, initial encounter for closed fracture (principal); W01.0XXA Fall on same level from slipping, tripping and stumbling without subsequent striking against object, initial encounter; Y93.9 Activity, unspecified; Y92.9 Unspecified place or not applicable; Z88.6 Allergy status to analgesic agent; Z91.040 Latex allergy status; Z88.2 Allergy status to sulfonamides
CPT/HCPCS: 99283

== ENCOUNTER 2019-06-08 17:53 | Emergency (ER) | payer OTHER, BC ==
[2019-06-08] MEDS ORDERED: METHYLPREDNISOLONE 125 MG INJ ONE (18:54)
[2019-06-08] MEDS ORDERED: DIPHENHYDRAMINE 50 MG/ML VIAL ONE (18:54)
[2019-06-08] MEDS ORDERED: NA CHLORIDE 0.9% 500 ML ONE (18:54)
[2019-06-08] MEDS ORDERED: FAMOTIDINE 20 MG/2 ML VIAL IV ONE (18:54)
[2019-06-08] MEDS ORDERED: predniSONE 20 MG TAB ONE (18:54)
[2019-06-08 19:19] LABS: Absolute Lymphocytes (CBC) 2.1 K/uL (0.7-4.9); Basophils % 0.4 % (0-1.3); Lymphocytes % 19.6 % (15.3-44.8); MPV 7.9 fL (7.6-11.3); RBC Red Blood Cell Count 4.84 M/uL (3.86-4.86)
--- NOTE | 2019-06-08 19:23 | ER ---
Nurse's Notes [facility] Name: Nanci Thomas Age: 78 yrs Sex: Female : 1940 Arrival Date: 06/08/2019 Time: 17:54 Bed 8 Private MD: Barry Sandy E Diagnosis: Angioneurotic edema Presentation: 06/07 18:06 Chief complaint: Patient states: swelling of tongue started about 45 minutes ago, has iw had similar episode in January, took two prednisone [employer], unknown what she is allergic to. Coronavirus screen: The patient has NOT traveled to [place] in the past 14 days. Proceed with normal triage procedures. Ebola Screen: Patient negative for fever greater than or equal to 101.5 degrees Fahrenheit, and additional compatible Ebola Virus Disease symptoms Patient denies exposure to infectious person. Patient denies travel to an Ebola-affected area in the 21 days before illness onset. No symptoms or risks identified at this time. Initial Sepsis Screen: Does the patient meet any 2 criteria? No. Patient's initial sepsis screen is negative. Does the patient have a suspected source of infection? No. Patient's initial sepsis screen is negative. Risk Assessment: Do you want to hurt yourself or someone else? Patient reports no desire to harm self or others. 18:06 Method Of Arrival: Ambulatory iw 18:06 Acuity: JOEL 3 iw Historical: - Allergies: 18:08 adhesive tape-silicones; iw 18:08 Cefaclor; iw 18:08 Codeine; iw 18:08 Hydrocodone-Acetaminophen; iw 18:08 Latex, Natural Rubber; iw 18:08 Levofloxacin; iw 18:08 Sulfa (Sulfonamide Antibiotics); iw - Home Meds: 18:08 anastrozole 1 mg Oral tab 1 tab once daily [Active]; B12 sublingual daily [Active]; iw Calcarb 600 With Vitamin D 600 mg(1,500mg) -400 unit Oral tab [Active]; Diltiazem Oral [Active]; glimepiride 2 mg Oral tab 1 tab once daily [Active]; spironolactone 50 mg Oral tab 1 tab once daily [Active]; Zonalon 5 % Topical crea PRN [Active]; - PMHx: 18:08 breast cancer; COPD; Hypertension; iw - Immunization history:: Adult Immunizations not up to date. - Social history:: Smoking status: Patient/guardian denies using tobacco, the patient reports quitting approximately 27 years ago. Screenin:20 Abuse screen: Denies threats or abuse. Nutritional screening: No deficits noted. aa5 Tuberculosis screening: No symptoms or risk factors identified. Fall Risk None identified. Assessment: 18:20 General: Appears comfortable, Behavior is calm, cooperative. Pain: Denies pain. Neuro: aa5 Level of Consciousness is awake, alert, obeys commands, Oriented to person, place, time, situation. Cardiovascular: Patient's skin is warm and dry. Respiratory: Airway is patent Respiratory effort is even, unlabored, Respiratory pattern is regular, symmetrical, Breath sounds are clear bilaterally. Denies shortness of breath. GI: No signs and/or symptoms were reported involving the gastrointestinal system. : No signs and/or symptoms were reported regarding the genitourinary system. EENT: swelling noted to right side of tongue, no drooling noted, speech is clear. . Derm: Skin is pink, warm \T\ dry. Musculoskeletal: Range of motion: intact in all extremities. 19:00 General: Appears uncomfortable, Behavior is calm, cooperative. Pain: Denies pain. ea Neuro: Level of Consciousness is awake, alert, obeys commands, Oriented to person, place, time, situation. Cardiovascular: Patient's skin is warm and dry. Respiratory: Airway is patent Respiratory effort is even, unlabored, Respiratory pattern is regular, symmetrical. 19:45 Derm: Skin is pink, warm \T\ dry. ea 19:54 Reassessment: Patient and/or family updated on plan of care and expected duration. Pain ea level reassessed. Patient is alert, oriented x 3, equal unlabored respirations, skin warm/dry/pink. Awaiting on labs. 20:04 Reassessment: SWELLING HAS DECREASED. PATIENT IS ALREADY FEELING BETTER. TEST RESULTS rv ARE EXPLAINED TO THE PATIENT TOGETHER WITH THE DISCHARGE INSTRUCTIONS AND PRESCRIPTIONS. DENIES ANY SOB/ PRIOR TO DISCHARGE. GCS 15, AMBULATORY. Vital Signs: 18:06 BP 124 / 100; Pulse 85; Resp 16; Pulse Ox 95% on R/A; Weight 82.1 kg; Height 5 ft. 4 iw in. (162.56 cm); Pain 0/10; 18:37 BP 148 / 61; Pulse 89; Resp 18 S; Pulse Ox 96% on R/A; aa5 18:37 Temp 98.0(TE); aa5 20:03 BP 137 / 66; Pulse 86; Resp 16; Temp 98; Pulse Ox 97% on R/A; rv 18:06 Body Mass Index 31.07 (82.10 kg, 162.56 cm) iw ED Course: 17:54 Patient arrived in ED. rg4 17:55 Barry Sandy MD is Private Physician. rg4 18:07 Triage completed. iw 18:08 Arm band placed on. iw 18:13 Elli Giraldo RN is Primary Nurse. aa5 18:15 Anival Avila MD is Attending Physician. nico 18:20 Patient has correct armband on for positive identification. Bed in low position. Call aa5 light in reach. Side rails up X 1. 18:50 Initial lab(s) drawn, by nc, sent to lab. Inserted saline lock: 20 gauge in right aa5 antecubital area, using aseptic technique. Blood collected. 19:10 Report given to APRYL Meeks. aa5 19:22 Barry Sandy MD is Referral Physician. [facility] 19:58 No provider procedures requiring assistance completed. IV discontinued, intact, ea bleeding controlled, No redness/swelling at site. Pressure dressing applied. Administered Medications: 18:50 Drug: NS 0.9% 500 ml Route: IV; Rate: bolus; Site: right antecubital; aa5 18:50 Drug: SOLU-Medrol 125 mg Route: IVP; Site: right antecubital; aa5 19:00 Follow up: Response: No adverse reaction aa5 18:50 Drug: predniSONE 20 mg Route: PO; aa5 19:00 Follow up: Response: No adverse reaction aa5 18:51 Drug: Pepcid 40 mg Route: IVP; Site: right antecubital; aa5 19:00 Follow up: Response: No adverse reaction aa5 18:51 Drug: Benadryl 50 mg Route: IVP; Site: right antecubital; aa5 19:00 Follow up: Response: No adverse reaction aa5 Outcome: 19:22 Discharge ordered by . nico 19:58 Discharged to home ambulatory, with family. ea 19:58 Condition: stable 19:58 Discharge instructions given to patient, Instructed on discharge instructions, follow up and referral plans. medication usage, Demonstrated understanding of instructions, follow-up care, medications, Prescriptions given X 4. 20:07 Patient left the ED. rv Signatures: Anival Avila MD MD cha Williams, Irene, RN RN Elli Zepeda RN RN Terri Dewitt Elena, RN RN ea Vicente, Ronaldo RN RN rv
--- NOTE | 2019-06-08 19:23 | EDPHYS ---
Physician Documentation [facility] Name: Nanci Thomas Age: 78 yrs Sex: Female : 1940 Arrival Date: 06/08/2019 Time: 17:54 Bed 8 Private MD: Barry Sandy E ED Physician Anival Avila HPI: 06/07 18:35 This 78 yrs old Female presents to ER via Ambulatory with complaints of nico Swelling Of Tongue. 18:35 The patient presents with swelling of the tongue. Onset: The symptoms/episode nico began/occurred just prior to arrival, today. Associated signs and symptoms: Pertinent positives: rash. Possible causes: The patient has no known obvious cause for the symptoms. At home the patient or guardian has treated the symptoms with steroids. Severity of symptoms: At their worst the symptoms were mild in the emergency department the symptoms are unchanged. The patient has not experienced similar symptoms in the past. Historical: - Allergies: 18:08 adhesive tape-silicones; iw 18:08 Cefaclor; iw 18:08 Codeine; iw 18:08 Hydrocodone-Acetaminophen; iw 18:08 Latex, Natural Rubber; iw 18:08 Levofloxacin; iw 18:08 Sulfa (Sulfonamide Antibiotics); iw - Home Meds: 18:08 anastrozole 1 mg Oral tab 1 tab once daily [Active]; B12 sublingual daily [Active]; iw Calcarb 600 With Vitamin D 600 mg(1,500mg) -400 unit Oral tab [Active]; Diltiazem Oral [Active]; glimepiride 2 mg Oral tab 1 tab once daily [Active]; spironolactone 50 mg Oral tab 1 tab once daily [Active]; Zonalon 5 % Topical crea PRN [Active]; - PMHx: 18:08 breast cancer; COPD; Hypertension; iw - Immunization history:: Adult Immunizations not up to date. - Social history:: Smoking status: Patient/guardian denies using tobacco, the patient reports quitting approximately 27 years ago. ROS: 18:36 Constitutional: Negative for fever, chills, and weight loss, Eyes: Negative for injury, nico pain, redness, and discharge, Neck: Negative for injury, pain, and swelling, Cardiovascular: Negative for chest pain, palpitations, and edema, Respiratory: Negative for shortness of breath, cough, wheezing, and pleuritic chest pain, Abdomen/GI: Negative for abdominal pain, nausea, vomiting, diarrhea, and constipation, Back: Negative for injury and pain, : Negative for injury, bleeding, discharge, and swelling, MS/Extremity: Negative for injury and deformity, Skin: Negative for injury, rash, and discoloration, Neuro: Negative for headache, weakness, numbness, tingling, and seizure, Psych: Negative for depression, anxiety, suicide ideation, homicidal ideation, and hallucinations, Allergy/Immunology: Negative for hives, rash, and allergies, Endocrine: Negative for neck swelling, polydipsia, polyuria, polyphagia, and marked weight changes, Hematologic/Lymphatic: Negative for swollen nodes, abnormal bleeding, and unusual bruising. 18:36 ENT: Positive for right side of tongue swollen. Exam: 18:36 Constitutional: This is a well developed, well nourished patient who is awake, alert, nico and in no acute distress. Head/Face: Normocephalic, atraumatic. Eyes: Pupils equal round and reactive to light, extra-ocular motions intact. Lids and lashes normal. Conjunctiva and sclera are non-icteric and not injected. Cornea within normal limits. Periorbital areas with no swelling, redness, or edema. Neck: Trachea midline, no thyromegaly or masses palpated, and no cervical lymphadenopathy. Supple, full range of motion without nuchal rigidity, or vertebral point tenderness. No Meningismus. Chest/axilla: Normal chest wall appearance and motion. Nontender with no deformity. No lesions are appreciated. Cardiovascular: Regular rate and rhythm with a normal S1 and S2. No gallops, murmurs, or rubs. Normal PMI, no JVD. No pulse deficits. Respiratory: Lungs have equal breath sounds bilaterally, clear to auscultation and percussion. No rales, rhonchi or wheezes noted. No increased work of breathing, no retractions or nasal flaring. Abdomen/GI: Soft, non-tender, with normal bowel sounds. No distension or tympany. No guarding or rebound. No evidence of tenderness throughout. Back: No spinal tenderness. No costovertebral tenderness. Full range of motion. Female : Normal external genitalia. Skin: Warm, dry with normal turgor. Normal color with no rashes, no lesions, and no evidence of cellulitis. MS/ Extremity: Pulses equal, no cyanosis. Neurovascular intact. Full, normal range of motion. Neuro: Awake and alert, GCS 15, oriented to person, place, time, and situation. Cranial nerves II-XII grossly intact. Motor strength 5/5 in all extremities. Sensory grossly intact. Cerebellar exam normal. Normal gait. Psych: Awake, alert, with orientation to person, place and time. Behavior, mood, and affect are within normal limits. 18:36 ENT: Mouth: Tongue: is moist, is swollen. 18:36 Respiratory: the patient does not display signs of respiratory distress, Respirations: normal, no acute changes, Breath sounds: are clear throughout, no acute changes, bronchial sounds, are not appreciated, decreased breath sounds, are not appreciated, rhonchi, are not appreciated, stridor, is not appreciated. Vital Signs: 18:06 BP 124 / 100; Pulse 85; Resp 16; Pulse Ox 95% on R/A; Weight 82.1 kg; Height 5 ft. 4 iw in. (162.56 cm); Pain 0/10; 18:37 BP 148 / 61; Pulse 89; Resp 18 S; Pulse Ox 96% on R/A; aa5 18:37 Temp 98.0(TE); aa5 20:03 BP 137 / 66; Pulse 86; Resp 16; Temp 98; Pulse Ox 97% on R/A; rv 18:06 Body Mass Index 31.07 (82.10 kg, 162.56 cm) iw MDM: 18:15 Patient medically screened. [facility] 18:38 Data reviewed: vital signs, nurses notes, lab test result(s), CBC, electrolytes. [facility] 06/07 18:35 Order name: CBC with Diff [facility] 06/07 18:35 Order name: Comprehensive Metabolic Panel [facility] Administered Medications: 18:50 Drug: NS 0.9% 500 ml Route: IV; Rate: bolus; Site: right antecubital; aa5 18:50 Drug: SOLU-Medrol 125 mg Route: IVP; Site: right antecubital; aa5 19:00 Follow up: Response: No adverse reaction aa5 18:50 Drug: predniSONE 20 mg Route: PO; aa5 19:00 Follow up: Response: No adverse reaction aa5 18:51 Drug: Pepcid 40 mg Route: IVP; Site: right antecubital; aa5 19:00 Follow up: Response: No adverse reaction aa5 18:51 Drug: Benadryl 50 mg Route: IVP; Site: right antecubital; aa5 19:00 Follow up: Response: No adverse reaction aa5 Disposition: 06/08/19 19:22 Discharged to Home. Impression: Angioneurotic edema. - Condition is Stable. - Discharge Instructions: Angioedema, Angioedema, [id number]. - Prescriptions for Benadryl 25 mg Oral Capsule - take 1 capsule by ORAL route every 6 hours As needed; 30 tablet. Pepcid 20 mg Oral Tablet - take 1 tablet by ORAL route every 12 hours for 10 days; 20 tablet. Prednisone 20 mg Oral Tablet - take 2 tablet by ORAL route once daily for 5 days; 10 tablet. EpiPen 0.3 mg Injection auto- injector - inject 1 pen by INTRAMUSCULAR route one time Inject into the outer portion of the thigh, through clothing if necessary. Indicated in the emergency treatment of allergic reactions; 1 Cartridge. - Medication Reconciliation Form, Thank You Letter, Antibiotic Education, Prescription Opioid Use form. - Follow up: Barry Sandy; When: 2 - 3 days; Reason: Recheck today's complaints, Continuance of care, Re-evaluation by your physician. - Problem is new. - Symptoms have improved. Signatures: Dispatcher [employer] EDMS Anival Avila MD MD cha Williams, Irene, RN RN iw Elli Giraldo RN RN aa5 Constantino Patton RN RN rv Corrections: (The following items were deleted from the chart) 20:07 19:22 06/08/2019 19:22 Discharged to Home. Impression: Angioneurotic edema. Condition rv is Stable. Discharge Instructions: Angioedema, Angioedema, [id number]. Prescriptions for Benadryl 25 mg Oral Capsule - take 1 capsule by ORAL route every 6 hours As needed; 30 tablet, Pepcid 20 mg Oral Tablet - take 1 tablet by ORAL route every 12 hours for 10 days; 20 tablet, Prednisone 20 mg Oral Tablet - take 2 tablet by ORAL route once daily for 5 days; 10 tablet, EpiPen 0.3 mg Injection auto-injector - inject 1 pen by INTRAMUSCULAR route one time Inject into the outer portion of the thigh, through clothing if necessary. Indicated in the emergency treatment of allergic reactions; 1 Cartridge. and Forms are Medication Reconciliation Form, Thank You Letter, Antibiotic Education, Prescription Opioid Use. Follow up: Barry Sandy; When: 2 - 3 days; Reason: Recheck today's complaints, Continuance of care, Re-evaluation by your physician. Problem is new. Symptoms have improved. nico
[2019-06-08 19:43] LABS: Albumin 3.9 g/dL (3.4-5.0); Bilirubin Total 0.3 mg/dL (0.2-1.0); Potassium 4.3 mmol/L (3.5-5.1); Protein, Total 8.3 g/dL (6.4-8.2)
[2019-06-08 20:18] VITALS: BP 137/66; TEMP 98; O2SAT 97
== END 2019-06-08 20:07 | disposition home or self-care (01) ==
LOC: ER 17:53
DX: T78.3XXA Angioneurotic edema, initial encounter (principal); Z88.6 Allergy status to analgesic agent; Z88.2 Allergy status to sulfonamides; Z91.040 Latex allergy status; I10 Essential (primary) hypertension; J44.9 Chronic obstructive pulmonary disease, unspecified; Z85.3 Personal history of malignant neoplasm of breast
CPT/HCPCS: 85025; 36415; 80053; 96375; 96374; 99284; J1200; J7040; J2930; J7512

== ENCOUNTER 2019-06-21 00:19 | Emergency (ER) | payer OTHER, BC ==
[2019-06-21] MEDS ORDERED: METHYLPREDNISOLONE 125 MG INJ ONE (00:41)
[2019-06-21] MEDS ORDERED: DIPHENHYDRAMINE 50 MG/ML VIAL ONE (00:42)
[2019-06-21] MEDS ORDERED: FAMOTIDINE 20 MG/2 ML VIAL IV ONE (00:42)
--- NOTE | 2019-06-21 01:55 | ER ---
Nurse's Notes [facility] Name: Nanci Thomas Age: 78 yrs Sex: Female : 1940 Arrival Date: 06/21/2019 Time: 00:22 Bed 4 Private MD: Barry Sandy E Diagnosis: Angioneurotic edema Presentation: 06/20 00:40 Chief complaint: Patient states: Swelling to tongue that has been going on for a few lp1 days, states felt tongue swelling begin to worsen tonight; Took prescribed steroid and has been feeling decrease in swelling, improvement; Denies any shortness of breath, difficulty swallowing. 00:40 Coronavirus screen: The patient has NOT traveled to a country currently being monitored lp1 by the [facility] within the last 14 days. The patient has NOT had contact with any known and/or suspected case of coronavirus. Ebola Screen: No symptoms or risks identified at this time. Initial Sepsis Screen: Does the patient meet any 2 criteria? No. Patient's initial sepsis screen is negative. Does the patient have a suspected source of infection? No. Patient's initial sepsis screen is negative. Risk Assessment: Do you want to hurt yourself or someone else? Patient reports no desire to harm self or others. 00:55 Method Of Arrival: Ambulatory lp1 00:55 Acuity: JOEL 2 lp1 Historical: - Allergies: 00:53 adhesive tape-silicones; lp1 00:53 Hydrocodone-Acetaminophen; lp1 00:53 Sulfa (Sulfonamide Antibiotics); lp1 00:53 Codeine; lp1 00:53 Cefaclor; lp1 00:53 Levofloxacin; lp1 00:53 Latex, Natural Rubber; lp1 00:53 Flu vaccine; lp1 - Home Meds: 00:53 spironolactone 50 mg Oral tab 1 tab once daily [Active]; diltiazem HCl 180 mg oral Tb24 lp1 2 tabs nightly [Active]; Anoro Ellipta 62.5-25 mcg/actuation inhalation dsdv 1 puff once daily [Active]; glimepiride 2 mg Oral tab 1 tab once daily [Active]; anastrozole 1 mg Oral tab 1 tab once daily [Active]; Zonalon 5 % Topical crea PRN [Active]; - PMHx: 00:53 breast cancer; COPD; Hypertension; Diabetes - NIDDM; lp1 - PSHx: 00:53 Left mastectomy; D \T\ C; lp1 - Immunization history:: Adult Immunizations up to date. - Social history:: Smoking status: Patient denies any tobacco usage or history of. Screenin:54 Abuse screen: Denies threats or abuse. Denies injuries from another. Nutritional lp1 screening: No deficits noted. Tuberculosis screening: No symptoms or risk factors identified. Fall Risk None identified. Assessment: 01:06 General: Appears uncomfortable, Behavior is appropriate for age. Pain: Denies pain. ea Neuro: Level of Consciousness is awake, alert, obeys commands, Oriented to person, place, time. Respiratory: Airway is patent Respiratory effort is even, unlabored, Respiratory pattern is regular, symmetrical. Derm: swelling noted to left side of mouth and toungue. Vital Signs: 00:35 BP 142 / 78; Pulse 113; Resp 20; Temp 98.8(O); Pulse Ox 96% on R/A; Weight 81.65 kg lp1 (R); Height 5 ft. 3 in. (160.02 cm); Pain 0/10; 00:35 Body Mass Index 31.89 (81.65 kg, 160.02 cm) lp1 ED Course: 00:22 Patient arrived in ED. es 00:22 Barry Sandy MD is Private Physician. es 00:32 Narendra Gunderson MD is Attending Physician. tw4 00:32 Maricruz Rojas, APRYL is Primary Nurse. ea 00:40 Inserted saline lock: 22 gauge in right antecubital area, using aseptic technique. ea 00:49 Arm band placed on. lp1 00:56 Triage completed. lp1 00:57 Patient has correct armband on for positive identification. lp1 01:54 Barry Sandy MD is Referral Physician. tw4 Administered Medications: 00:35 Drug: Benadryl 25 mg Route: IVP; Site: right antecubital; ea 00:40 Drug: Pepcid 20 mg Route: IVP; Site: right antecubital; ea 00:45 Drug: SOLU-Medrol 125 mg Route: IVP; Site: right antecubital; ea Outcome: 01:54 Discharge ordered by . tw4 02:15 Patient left the ED. lp1 Signatures: Jamila Akers Laura, RN RN lp1 Maricruz Rojas RN RN Narendra Anderson MD MD tw4 Corrections: (The following items were deleted from the chart) 00:56 00:40 Chief complaint: Patient states: Swelling to tongue that has been going on for a lp1 few days lp1
--- NOTE | 2019-06-21 01:55 | EDPHYS ---
Physician Documentation [facility] Name: Nanci Thomas Age: 78 yrs Sex: Female : 1940 Arrival Date: 06/21/2019 Time: 00:22 Bed 4 Private MD: Barry Sandy E ED Physician Narendra Gunderson HPI: 06/20 02:10 This 78 yrs old Female presents to ER via Ambulatory with complaints of tw4 Swelling Of Tongue. 02:10 The patient presents with swelling of the tongue. Onset: The symptoms/episode tw4 began/occurred today. Associated signs and symptoms: The patient has no apparent associated signs or symptoms. Possible causes: The patient has no known obvious cause for the symptoms. At home the patient or guardian has treated the symptoms with steroids. Severity of symptoms: At their worst the symptoms were mild in the emergency department the symptoms are unchanged. The patient has not experienced similar symptoms in the past. 02:10 The patient has been recently seen at the [facility] Emergency tw4 Department, last week. Historical: - Allergies: 00:53 adhesive tape-silicones; lp1 00:53 Hydrocodone-Acetaminophen; lp1 00:53 Sulfa (Sulfonamide Antibiotics); lp1 00:53 Codeine; lp1 00:53 Cefaclor; lp1 00:53 Levofloxacin; lp1 00:53 Latex, Natural Rubber; lp1 00:53 Flu vaccine; lp1 - Home Meds: 00:53 spironolactone 50 mg Oral tab 1 tab once daily [Active]; diltiazem HCl 180 mg oral Tb24 lp1 2 tabs nightly [Active]; Anoro Ellipta 62.5-25 mcg/actuation inhalation dsdv 1 puff once daily [Active]; glimepiride 2 mg Oral tab 1 tab once daily [Active]; anastrozole 1 mg Oral tab 1 tab once daily [Active]; Zonalon 5 % Topical crea PRN [Active]; - PMHx: 00:53 breast cancer; COPD; Hypertension; Diabetes - NIDDM; lp1 - PSHx: 00:53 Left mastectomy; D \T\ C; lp1 - Immunization history:: Adult Immunizations up to date. - Social history:: Smoking status: Patient denies any tobacco usage or history of. ROS: 02:10 Constitutional: Negative for fever, chills, and weight loss, Eyes: Negative for injury, tw4 pain, redness, and discharge. 02:10 ENT: Positive for tongue swelling. 02:10 Cardiovascular: Negative for chest pain, palpitations, and edema, Respiratory: Negative tw4 for shortness of breath, cough, wheezing, and pleuritic chest pain, Abdomen/GI: Negative for abdominal pain, nausea, vomiting, diarrhea, and constipation, Back: Negative for injury and pain, MS/Extremity: Negative for injury and deformity, Skin: Negative for injury, rash, and discoloration. Exam: 02:10 Constitutional: This is a well developed, well nourished patient who is awake, alert, tw4 and in no acute distress. Head/Face: Normocephalic, atraumatic. 02:10 Neck: Trachea midline, no thyromegaly or masses palpated, and no cervical lymphadenopathy. Supple, full range of motion without nuchal rigidity, or vertebral point tenderness. No Meningismus. Cardiovascular: Regular rate and rhythm with a normal S1 and S2. No gallops, murmurs, or rubs. Normal PMI, no JVD. No pulse deficits. Respiratory: Lungs have equal breath sounds bilaterally, clear to auscultation and percussion. No rales, rhonchi or wheezes noted. No increased work of breathing, no retractions or nasal flaring. 02:10 ENT: Mouth: Tongue: mild swelling. Vital Signs: 00:35 BP 142 / 78; Pulse 113; Resp 20; Temp 98.8(O); Pulse Ox 96% on R/A; Weight 81.65 kg lp1 (R); Height 5 ft. 3 in. (160.02 cm); Pain 0/10; 00:35 Body Mass Index 31.89 (81.65 kg, 160.02 cm) lp1 MDM: 00:32 Patient medically screened. tw4 02:10 Differential diagnosis: angioedema, Hereditary Angioedema urticaria. Data reviewed: tw4 vital signs, nurses notes. Data interpreted: Pulse oximetry: Interpretation: normal. Counseling: I had a detailed discussion with the patient and/or guardian regarding: the historical points, exam findings, and any diagnostic results supporting the discharge/admit diagnosis. Medication response: solumderol. Response to treatment: There is no appreciated change of the patient's symptoms at this time, and as a result, I will discharge patient. Special discussion: I discussed with the patient/guardian in detail that at this point there is no indication for admission to the hospital. It is understood, however, that if the symptoms persist or worsen the patient needs to return immediately for re-evaluation. ED course: Pt states her swelling has improved. Administered Medications: 00:35 Drug: Benadryl 25 mg Route: IVP; Site: right antecubital; ea 00:40 Drug: Pepcid 20 mg Route: IVP; Site: right antecubital; ea 00:45 Drug: SOLU-Medrol 125 mg Route: IVP; Site: right antecubital; ea Disposition: 06/21/19 01:54 Discharged to Home. Impression: Angioneurotic edema. - Condition is Stable. - Discharge Instructions: Angioedema. - Prescriptions for Pepcid 20 mg Oral Tablet - take 1 tablet by ORAL route every 12 hours for 10 days; 20 tablet. Medrol (Chase) 4 mg Oral Tablets, Dose Pack - take 1 tablet by ORAL route as directed - follow package instructions; 1 packet. - Medication Reconciliation Form, Thank You Letter, Antibiotic Education, Prescription Opioid Use form. - Follow up: Barry Sandy MD; When: Upon discharge from the Emergency Department; Reason: Recheck today's complaints, Continuance of care, Re-evaluation by your physician. - Problem is new. - Symptoms have improved. Signatures: Evi Law RN RN lp1 Maricruz Rojas RN RN ea Narendra Gunderson MD MD tw4 Corrections: (The following items were deleted from the chart) 02:15 01:54 06/21/2019 01:54 Discharged to Home. Impression: Angioneurotic edema. Condition lp1 is Stable. Forms are Medication Reconciliation Form, Thank You Letter, Antibiotic Education, Prescription Opioid Use. Follow up: Barry Sandy; When: Upon discharge from the Emergency Department; Reason: Recheck today's complaints, Continuance of care, Re-evaluation by your physician. Problem is new. Symptoms have improved. tw4
[2019-06-21 02:23] VITALS: BP 142/78; TEMP 98.8; O2SAT 96
== END 2019-06-21 02:15 | disposition home or self-care (01) ==
LOC: ER 00:19
DX: T78.3XXA Angioneurotic edema, initial encounter (principal); Z88.6 Allergy status to analgesic agent; Z88.2 Allergy status to sulfonamides; Z91.040 Latex allergy status; Z88.8 Allergy status to other drugs, medicaments and biological substances; Z88.7 Allergy status to serum and vaccine; Z85.3 Personal history of malignant neoplasm of breast; I10 Essential (primary) hypertension; E11.9 Type 2 diabetes mellitus without complications; J44.9 Chronic obstructive pulmonary disease, unspecified
CPT/HCPCS: 96375; 96374; 99283; J1200; J2930